=== PATIENT | male | born 1960 | race Caucasian/White ===

== ENCOUNTER 2017-06-30 10:18 | Day surgery (SDC) | payer MEDICARE ==
[~2017-06-30] VITALS: Ht 193 cm; Wt 114.3 kg
[~2017-06-30 10:18] MED LIST: /FEXO18TA; ACET500C PO; ALL10TAB27 PO; ALTA5CAP PO; AMBI10TA PO; AMIT25TA PO; ATEN50TA2; ATENOL/CHLOR PO; ATENOLOL PO; CELE20TA PO; CELE40TA; COMBVENT; DOXA1TAB40 PO; FLEXERIL; FLUT50SP; FOLI1TAB86 PO; GABA-282 PO; GABA400C PO; HEPA100SYR IV; HEPA50VL SQ; HYDR-3363 PO; HYDR-3719 PO; HYDR25TA6; HYDR25TA8 PO; INSUHUMDS SC; IPRA0.03; IPRA2IN INH; LEVA31IN INH; MIRT1TAB PO; MONT10TA2 PO; NASONEX NASAL SPRAY; OXAZ15CA PO; OXYCO5TA PO; PERC5TAB PO; REFR0.5D8 OU; SIMV20TA2 PO; SLF IV; SOMA350T; SOMA350T PO; SPIR1CAP INH; SPIRIVA 18 MCG PO; SUMA25TA3 PO; TEFL600I IV; TENO50TA PO; TOPI50TA; TRAM50TA2; TRIL600T PO; VICO5TAB; VICO5TAB16 PO; VICODIN PO; VITA100T2 PO; VYTO10TA5 PO; [UNRECOGNIZED DRUG - OTHER] PO; spiriva handihaler INH
[2017-06-30] MEDS ORDERED: PROPOFOL 200 MG/20 ML VIAL As Ordered ONE ×2 (12:16→12:31)
[2017-06-30] MEDS ORDERED: LIDOCAINE 2% INJ 100 MG/5 ML SDV (FOR ANES.) As Ordered ONE (12:16)
--- NOTE | 2017-06-30 12:48 | ROOR ---
Patient Name: Markos Holguin Procedure Date: 06/30/2017 12:12 PM Date of : 1960 Age: 57 Room: [facility] Gender: Male Note Status: Finalized Procedure: Colonoscopy Indications: Screening for colorectal malignant neoplasm Providers: Oj FLYNN MD Referring MD: MARTINA BRICEÑO MD Requesting Provider: Medicines: Monitored Anesthesia Care Complications: No immediate complications. Procedure: Pre-Anesthesia Assessment: - The heart rate, respiratory rate, oxygen saturations, blood pressure, adequacy of pulmonary ventilation, and response to care were monitored throughout the procedure. The Colonoscope was introduced through the anus and advanced to 3 cm into the ileum. The colonoscopy was performed without difficulty. The patient tolerated the procedure well. The quality of the bowel preparation was good. Findings: The perianal and digital rectal examinations were normal. A 6 mm polyp was found in the recto-sigmoid colon. The polyp was sessile. The polyp was removed with a cold snare. Resection and retrieval were complete. A diffuse area of mild melanosis was found in the entire colon. The exam was otherwise without abnormality on direct and retroflexion views. The terminal ileum appeared normal. Impression: - One 6 mm polyp at the recto-sigmoid colon, removed with a cold snare. Resected and retrieved. - The colon examination was otherwise normal on direct and retroflexion views. - The examined portion of the ileum was normal. Recommendation: - Telephone endoscopist for pathology results in 2 weeks. - If the pathology report reveals adenomatous tissue, then repeat the colonoscopy for surveillance in 3 years. Oj Flynn MD Oj FLYNN MD 06/30/2017 12:47:29 PM This report has been signed electronically. Number of Addenda: 0 Note Initiated On: 06/30/2017 12:12 PM Estimated Blood Loss: Estimated blood loss: none.
--- NOTE | 2017-06-30 12:50 | ROOR ---
Patient Name: Markos Holguin Procedure Date: 06/30/2017 12:39 PM Date of : 1960 Age: 57 Room: [facility] Gender: Male Note Status: Finalized Procedure: Upper GI endoscopy Indications: Unexplained anemia, (negative colonoscopy) Providers: Oj FLYNN MD Referring MD: MARTINA BRICEÑO MD Requesting Provider: Medicines: Monitored Anesthesia Care Complications: No immediate complications. Procedure: Pre-Anesthesia Assessment: - The heart rate, respiratory rate, oxygen saturations, blood pressure, adequacy of pulmonary ventilation, and response to care were monitored throughout the procedure. The Endoscope was introduced through the mouth, and advanced to the second part of duodenum. The upper GI endoscopy was accomplished without difficulty. The patient tolerated the procedure well. Findings: The esophagus was normal. The stomach was normal. The examined duodenum was normal. Impression: - Normal esophagus. - Normal stomach. - Normal examined duodenum. - No specimens collected. Recommendation: - Observe patient's clinical course. - Return to referring physician as previously scheduled. Oj Flynn MD Oj FLYNN MD 06/30/2017 12:49:50 PM This report has been signed electronically. Number of Addenda: 0 Note Initiated On: 06/30/2017 12:39 PM Estimated Blood Loss: Estimated blood loss: none.
[2017-06-30 13:19] VITALS: BP 132/73
== END 2017-06-30 13:26 | disposition home or self-care (01) ==
LOC: M OPP 10:18 → EDSTATUS 12:50 → M OPP 13:26
PROVIDERS: ATTEND Internal Medicine Gastroenterology
DX: Z12.11 Encounter for screening for malignant neoplasm of colon (principal); D12.7 Benign neoplasm of rectosigmoid junction; K63.89 Other specified diseases of intestine; D64.9 Anemia, unspecified; I10 Essential (primary) hypertension; E78.5 Hyperlipidemia, unspecified; M19.90 Unspecified osteoarthritis, unspecified site; M54.89 Other dorsalgia; M25.60 Stiffness of unspecified joint, not elsewhere classified; F41.9 Anxiety disorder, unspecified; F32.9 Major depressive disorder, single episode, unspecified; G43.909 Migraine, unspecified, not intractable, without status migrainosus; J44.9 Chronic obstructive pulmonary disease, unspecified; Z98.1 Arthrodesis status; Z87.891 Personal history of nicotine dependence; Z88.8 Allergy status to other drugs, medicaments and biological substances; Z88.5 Allergy status to narcotic agent; Z88.0 Allergy status to penicillin; Z79.899 Other long term (current) drug therapy; Z80.3 Family history of malignant neoplasm of breast

== ENCOUNTER 2020-08-17 07:31 | Emergency (ER) | payer MEDICARE, MEDICAID ==
[~2020-08-17] VITALS: Ht 195.6 cm; Wt 113.6 kg
[~2020-08-17 07:31] MED LIST changes: -ALL10TAB27 PO; +CETI-24 PO; -GABA-282 PO; +GABA-843 PO; +HEPA500020 SQ; -HEPA50VL SQ; +LEVA0.3131 INH; -LEVA31IN INH; +OXYC-517 PO; -OXYCO5TA PO; -SIMV20TA2 PO; +SIMV20TA22 PO
--- NOTE | 2020-08-17 08:30 | REP ---
INDICATION: deformity. COMPARISON: Comparison left foot radiographs October 22, 2013.. TECHNIQUE: Four views. FINDINGS: Four views of the left ankle demonstrate diffuse osteoporosis. There is old fragmented spurring of the medial malleolus and adjacent to the lateral malleolus. These findings are unchanged from the comparison radiograph 2013. Ankle mortise is intact. No fracture is seen. There is a large spur or accessory ossicle adjacent to the distal fibula but this is unchanged from the 2014 study. There is mild midfoot spurring on the lateral radiograph. A tiny plantar calcaneal spur is noted. IMPRESSION: Osteoporosis, osteoarthritis, and accessory ossicles as above. No acute bony abnormality. <Electronically signed by Howard Mccoy > 08/17/20 [id number]
[2020-08-17 08:54] VITALS: BP 100/59
== END 2020-08-17 09:02 | disposition home or self-care (01) ==
LOC: M ED 07:31
DX: S93.402A Sprain of unspecified ligament of left ankle, initial encounter (principal); X50.1XXA Overexertion from prolonged static or awkward postures, initial encounter; Y92.099 Unspecified place in other non-institutional residence as the place of occurrence of the external cause; Y93.9 Activity, unspecified; Y99.9 Unspecified external cause status; Z87.891 Personal history of nicotine dependence; M81.0 Age-related osteoporosis without current pathological fracture; M19.072 Primary osteoarthritis, left ankle and foot; Z79.899 Other long term (current) drug therapy; Z88.0 Allergy status to penicillin; Z88.5 Allergy status to narcotic agent; Z88.8 Allergy status to other drugs, medicaments and biological substances

== ENCOUNTER 2022-01-01 15:06 | Emergency (ER) | payer MEDICARE, MEDICAID ==
[~2022-01-01] VITALS: Ht 195.6 cm; Wt 112.5 kg
[~2022-01-01 15:06] MED LIST changes: -AMIT25TA PO; +AMIT25TA17 PO; +GABA-282 PO; -GABA-843 PO
[2022-01-01] MEDS ORDERED: METF10004 (15:33)
[2022-01-01] MEDS ORDERED: ATEN50TA9 (15:33)
[2022-01-01 15:50] LABS: BASO # 0.1 10^3/uL (0.0-0.2); BASO % 0.5 % (0.0-1.0); EOS # 0.5 10^3/uL (0.0-0.5); EOS % 5.1 % (0.0-3.0); HEMATOCRIT 34.3 % (42.0-52.0); LYMPH # 2.7 10^3/uL (1.5-5.0); LYMPH % 27.8 % (24.0-44.0); MEAN CORPUSCULAR HEMOGLOBIN 25.3 pg (27.0-33.0); MEAN CORPUSCULAR HGB CONC 32.1 g/dl (32.0-36.5); MEAN CORPUSCULAR VOLUME 78.9 fl (80.0-96.0); MONO # 0.7 10^3/uL (0.0-0.8); MONO % 7.2 % (2.0-8.0); NEUTROPHILS # 5.7 10^3/uL (1.5-8.5); PLATELET COUNT, AUTOMATED 226 10^3/uL (150-450); RED BLOOD COUNT 4.35 10^6/uL (4.30-6.10); WHITE BLOOD COUNT 9.7 10^3/uL (4.0-10.0)
[2022-01-01 16:34] LABS: ACETAMINOPHEN LEVEL 7.3 UG/ML (10.0-30.0); ALBUMIN 3.7 GM/DL (3.2-5.2); ALT/SGPT 35 U/L (12-78); BILIRUBIN,DIRECT < 0.1 MG/DL (0.0-0.2); BILIRUBIN,TOTAL 0.3 MG/DL (0.2-1.0); BLOOD UREA NITROGEN 38 MG/DL (7-18); CARBON DIOXIDE LEVEL 27 MEQ/L (21-32); CHLORIDE LEVEL 102 MEQ/L (98-107); CREATININE FOR GFR 1.57 MG/DL (0.70-1.30); ETHYL ALCOHOL (ETHANOL) < 0.003 % (0.000-0.010); GLOMERULAR FILTRATION RATE 47.7 (>49); GLUCOSE, FASTING 158 MG/DL (70-100); POTASSIUM SERUM 5.1 MEQ/L (3.5-5.1); SALICYLATE LEVEL < 1.7 MG/DL (5.0-30.0); SODIUM LEVEL 136 MEQ/L (136-145); TOTAL PROTEIN 7.1 GM/DL (6.4-8.2)
[2022-01-01 16:39] LABS: OSMOLALITY SERUM 297 MOSM/KG (280-301)
[2022-01-01 18:50] VITALS: BP 117/63
== END 2022-01-01 19:04 | disposition home or self-care (01) ==
LOC: M ED 15:06 → EDBD 15:06 → M ED 19:04
DX: T88.7XXA Unspecified adverse effect of drug or medicament, initial encounter (principal); I10 Essential (primary) hypertension; G43.909 Migraine, unspecified, not intractable, without status migrainosus; M54.9 Dorsalgia, unspecified; E78.00 Pure hypercholesterolemia, unspecified; Z79.899 Other long term (current) drug therapy; Z88.0 Allergy status to penicillin; Z88.5 Allergy status to narcotic agent; Z88.8 Allergy status to other drugs, medicaments and biological substances

== ENCOUNTER → 2022-03-24 | Outpatient (CLI) | payer MEDICARE, MEDICAID ==
[~2022-03-24] MED LIST changes: +ATEN50TA9; +METF10004
== END ==
LOC: M RAD 10:00
PROVIDERS: ATTEND Family Medicine
DX: Z12.2 Encounter for screening for malignant neoplasm of respiratory organs (principal); F17.210 Nicotine dependence, cigarettes, uncomplicated

== ENCOUNTER → 2023-12-13 | Outpatient (CLI) | payer MEDICARE, MEDICAID ==
[~2023-12-13] MED LIST changes: -AMIT25TA17 PO; +AMIT25TA19 PO
== END ==
LOC: M RAD 15:50
PROVIDERS: ATTEND Family Medicine
DX: Z12.2 Encounter for screening for malignant neoplasm of respiratory organs (principal); F17.210 Nicotine dependence, cigarettes, uncomplicated; R91.8 Other nonspecific abnormal finding of lung field; J43.9 Emphysema, unspecified